=== PATIENT | male | born 1965 | race African-American/Black ===

== ENCOUNTER 2023-06-15 01:49 | Emergency (ER) | payer OTHER ==
[~2023-06-15] VITALS: Ht 182.9 cm; Wt 90.0 kg
[2023-06-15 01:53] VITALS: BP 145/102; PULSE 100; RESP 13; O2SAT 96
== END 2023-06-15 04:15 | disposition left against medical advice (07) ==
LOC: ER 01:49
DX: Z76.89 Persons encountering health services in other specified circumstances (principal); Z53.21 Procedure and treatment not carried out due to patient leaving prior to being seen by health care provider
CPT/HCPCS: 99281

== ENCOUNTER 2024-04-28 14:16 | Emergency (ER) | payer OTHER ==
[~2024-04-28] VITALS: Ht 175.3 cm; Wt 80.0 kg
[2024-04-28 14:21] VITALS: BP 168/99; PULSE 78; RESP 18; TEMP 36.8; O2SAT 98
[2024-04-28] MEDS ORDERED: IBUP-2029 MT (18:25)
[2024-04-28] MEDS: IBUPROFEN 600MG TABLET PO ONE (18:27)
== END 2024-04-28 18:29 | disposition home or self-care (01) ==
LOC: ER 14:16
DX: S63.91XA Sprain of unspecified part of right wrist and hand, initial encounter (principal); I10 Essential (primary) hypertension; Y04.0XXA Assault by unarmed brawl or fight, initial encounter; Y93.89 Activity, other specified; Y92.89 Other specified places as the place of occurrence of the external cause; Y99.8 Other external cause status
CPT/HCPCS: 73130; 99283

== ENCOUNTER 2025-02-19 13:35 | Emergency (ER) | payer MEDICAID, OTHER ==
[~2025-02-19] VITALS: Ht 182.9 cm; Wt 80.0 kg
[~2025-02-19 13:35] MED LIST: IBUP-1455 MT
[2025-02-19 13:37] VITALS: O2SAT 100
[2025-02-19] MEDS: KETOROLAC 15MG/ML VIAL IM ONE (16:34)
[2025-02-19] MEDS ORDERED: LIDO-53 TP (18:54)
[2025-02-19] MEDS ORDERED: IBUP-1455 MT (18:54)
[2025-02-19 19:40] VITALS: BP 140/89; PULSE 68; RESP 16; TEMP 36.6; O2SAT 100
== END 2025-02-19 19:53 | disposition home or self-care (01) ==
LOC: ER 13:35
DX: S39.012A Strain of muscle, fascia and tendon of lower back, initial encounter (principal); F20.9 Schizophrenia, unspecified; I10 Essential (primary) hypertension; X58.XXXA Exposure to other specified factors, initial encounter; Y93.89 Activity, other specified; Y92.89 Other specified places as the place of occurrence of the external cause; Y99.8 Other external cause status
CPT/HCPCS: 99285; 72131; 96372; J1885